=== PATIENT | male | born 1965 | race Caucasian/White ===

== ENCOUNTER 2022-09-13 12:27 | Inpatient (IN) | payer OTHER ==
[2022-09-13 13:19] VITALS: BMI 19.8
[2022-09-13] MEDS ORDERED: MAGNESIUM HYDROX 2400MG/30ML ORAL SUSPENSION 30 ML CUP PO PRN (13:55)
[2022-09-13] MEDS ORDERED: NICOTINE 10 MG CARTRIDGE (INHALER) IH PRN (13:55)
[2022-09-13] MEDS ORDERED: BISMUTH SUBSALICYLATE 262 MG/15 ML BTL PO PRN (13:55)
[2022-09-13] MEDS ORDERED: DICYCLOMINE HCL 10 MG CAPSULE PO PRN (13:55)
[2022-09-13] MEDS ORDERED: LOPERAMIDE HCL 2 MG CAPSULE PO PRN (13:55)
[2022-09-13] MEDS ORDERED: IBUPROFEN 600 MG TABLET (FP) PO PRN (13:55)
[2022-09-13] MEDS ORDERED: BENZOCAINE/MENTHOL (CHLORASEPTIC ) LOZENGE MM PRN (13:55)
[2022-09-13] MEDS ORDERED: IBUPROFEN 400 MG TABLET (FP) PO PRN (13:55)
[2022-09-13] MEDS ORDERED: P-EPHED 60MG/TRIPROLIDI 2.5MG TABLET PO PRN (13:55)
[2022-09-13] MEDS ORDERED: ACETAMINOPHEN 325 MG TABLET (FP) PO PRN (13:55)
[2022-09-13] MEDS ORDERED: MAG HYDROX/AL HYDROX/SIMETH 30 ML UNIT-DOSE CUP PO PRN (13:55)
[2022-09-13] MEDS ORDERED: ONDANSETRON *ODT* 4 MG TABLET SL PRN (13:55)
[2022-09-13] MEDS ORDERED: POLYETHYLENE GLYCOL (HEALTHYLAX) 3350 17 GM PACKET PO PRN (13:55)
[2022-09-13] MEDS ORDERED: BENZONATATE 200 MG CAPSULE PO PRN (13:55)
[2022-09-13] MEDS ORDERED: NICOTINE POLACRILEX 2 MG GUM BUC PRN (13:55)
[2022-09-13] MEDS ORDERED: guaiFENesin 600 MG TABLET.ER (FP) PO PRN (13:55)
[2022-09-13] MEDS: hydrOXYzine PAMOATE 25 MG CAPSULE (FP) PO PRN (17:55)
[2022-09-13] MEDS: MELATONIN 5 MG TABLETS PO PRN (22:09)
[2022-09-13] MEDS: THIAMINE HCL 100 MG TABLET (FP) PO SCH (22:10)
[2022-09-13] MEDS: ATORVASTATIN CA 20 MG TABLET (FP) PO SCH (22:10)
[2022-09-14] MEDS ORDERED: FOLIC ACID 1 MG TABLET (FP) PO SCH (10:00)
[2022-09-14] MEDS: PRENATAL VITAMINS W/ FOLIC ACID TABLET (FP) PO SCH (10:21)
[2022-09-14] MEDS: DARUNAVIR/COB/EMTRI/TENOF (SYMTUZA) TABLET (NF) PO SCH (10:21)
[2022-09-14] MEDS: VALSARTAN 40 MG TABLET PO SCH (10:22)
[2022-09-14] MEDS: SPIRONOLACTONE 25 MG TABLET PO SCH (10:22)
[2022-09-14] MEDS: NICOTINE 14 MG/24 HOURS TOPICAL PATCH TD PRN (10:23)
[2022-09-14 11:26] LABS: HEMATOCRIT 43.6 % (35.4-49); HEMOGLOBIN 15.1 GM/dL (11.7-16.9); MCH 32.2 pg (25.7-33.7); MCHC 34.6 g/dl (32.0-35.9); MEAN CELL VOLUME 93.1 fl (80-96); MEAN PLT VOLUME 9.7 fl (7.5-11.1); PLATELET COUNT 278 10^3/uL (134-434); RBC 4.68 M/mm3 (4.00-5.60); RDW 13.3 % (11.9-15.9); WHITE BLOOD COUNT 8.1 K/mm3 (4.0-10.0)
[2022-09-14 11:37] LABS: BLOOD UREA NITROGEN 11.6 mg/dL (7-18); CALCIUM 9.2 mg/dL (8.5-10.1)
[2022-09-14 11:41] LABS: CREATININE 0.8 mg/dL (0.55-1.3)
[2022-09-14 11:43] LABS: BILIRUBIN,TOTAL 0.8 mg/dL (0.2-1); TOT PROT 7.8 g/dl (6.4-8.2)
[2022-09-14] MEDS: ATORVASTATIN CA 20 MG TABLET (FP) PO SCH (22:33)
[2022-09-14] MEDS: THIAMINE HCL 100 MG TABLET (FP) PO SCH (22:33)
[2022-09-14] MEDS: MELATONIN 5 MG TABLETS PO PRN (22:34)
[2022-09-14] MEDS: hydrOXYzine PAMOATE 25 MG CAPSULE (FP) PO PRN (22:35)
[2022-09-15 09:21] VITALS: BP 126/73; PULSE 68; RESP 18; TEMP 97.6
[2022-09-15] MEDS: PRENATAL VITAMINS W/ FOLIC ACID TABLET (FP) PO SCH (10:10)
[2022-09-15] MEDS: DARUNAVIR/COB/EMTRI/TENOF (SYMTUZA) TABLET (NF) PO SCH (10:10)
[2022-09-15] MEDS: VALSARTAN 40 MG TABLET PO SCH (10:10)
[2022-09-15] MEDS: SPIRONOLACTONE 25 MG TABLET PO SCH (10:10)
[2022-09-15] MEDS: NICOTINE 14 MG/24 HOURS TOPICAL PATCH TD PRN (10:12)
== END 2022-09-15 11:58 | disposition home or self-care (01) | DRG 774 ==
LOC: YASAS 12:27 → Y3N 16:29
PROVIDERS: ADMIT Allergy & Immunology; ATTEND Surgery
PROC: HZ2ZZZZ Detoxification Services for Substance Abuse Treatment (ICD-10-PCS; principal; 2022-09-13)
DX: F10.230 Alcohol dependence with withdrawal, uncomplicated (principal); F14.90 Cocaine use, unspecified, uncomplicated; F17.210 Nicotine dependence, cigarettes, uncomplicated; Z21 Asymptomatic human immunodeficiency virus [HIV] infection status; Z87.820 Personal history of traumatic brain injury; Z28.310 Unvaccinated for COVID-19; Z28.9 Immunization not carried out for unspecified reason
CPT/HCPCS: 36415; 80053; 85027; 86780; C9803-CS; U0003; U0005